=== PATIENT | male | born 2000 ===

== ENCOUNTER 2022-08-01 14:07 | Outpatient (CLI) | payer OTHER | END 2022-08-01 14:08 | disposition home or self-care (01) | LOC: SCSMRI 14:07 | PROVIDERS: ATTEND Orthopaedic Surgery | DX: D16.01 Benign neoplasm of scapula and long bones of right upper limb (principal); S46.811A Strain of other muscles, fascia and tendons at shoulder and upper arm level, right arm, initial encounter; S29.011A Strain of muscle and tendon of front wall of thorax, initial encounter ==